=== PATIENT | male | born 1995 | race American Indian/Alaskan Native ===

== ENCOUNTER 2018-06-24 19:19 | Emergency (ER) | payer OTHER ==
[2018-06-24 19:30] VITALS: RESP 18; TEMP 99; BMI 18.1
[2018-06-24] MEDS ORDERED: Naproxen 550 mg Tab PO STA (19:59)
--- NOTE | 2018-06-24 20:03 | ED PDOC ---
Arrival/HPI - General Chief Complaint: Dental Pain Time Seen by Provider: 06/24/18 19:25 Historian: Patient - History of Present Illness Narrative History of Present Illness (Text): 06/24/18 20:00 23 yo M presents c/o pain and swelling to the L upper gum with dental pain for the past few days. Reports no headache, fever, URI, sore throat, N/V. Patient has no other complaints Past Medical History - Reproductive Currently Lactating: No - Psychiatric Hx Substance Use: No - Anesthesia Hx Anesthesia: No Hx Anesthesia Reactions: No Hx Malignant Hyperthermia: No Family/Social History Family/Social History: No Known Family HX Smoking Status: Never Smoked Hx Alcohol Use: Yes Frequency of alcohol use: Socially Hx Substance Use: No Allergies/Home Meds Allergies/Adverse Reactions: Allergies seafood Allergy (Uncoded 06/24/18 19:29) ANAPHYLAXIS Review of Systems - Review of Systems Constitutional: absent: Fatigue, Fevers ENT: Other (+dental pain). absent: Sore Throat, Rhinorrhea, Sinus Congestion Respiratory: absent: SOB, Cough Skin: absent: Rash, Skin Lesions Neurological: absent: Headache, Dizziness Physical Exam Vital Signs Temp Pulse Resp BP Pulse Ox 06/24/18 19:29 99 F 83 18 123/77 98 Temperature: Afebrile Blood Pressure: Normal Pulse: Regular Respiratory Rate: Normal Appearance: Positive for: Well-Appearing, Non-Toxic, Comfortable Pain Distress: None Mental Status: Positive for: Alert and Oriented X 3 - Systems Exam Head: Present: Atraumatic, Normocephalic, Swelling (+mild edema and tenderness to the L cheek, no erythema, no fluctuance) Pupils: Present: PERRL Extroacular Muscles: Present: EOMI Conjunctiva: Present: Normal Mouth: Present: Moist Mucous Membranes, Other (+large dental cavity to the L upper 2nd and 3rd molar). No: Drooling, Trismus Neck: Present: Normal Range of Motion. No: Meningeal Signs, MIDLINE TENDERNESS, Lymphadenopathy Back: Present: Normal Inspection Upper Extremity: Present: Normal Inspection. No: Cyanosis, Edema Lower Extremity: Present: Normal Inspection. No: Edema Neurological: Present: GCS=15, CN II-XII Intact, Speech Normal Skin: Present: Warm, Dry, Normal Color. No: Rashes Psychiatric: Present: Alert, Oriented x 3, Normal Insight, Normal Concentration Medical Decision Making ED Course and Treatment: 06/24/18 20:04 Patient medicated with clindamycin po and naprosyn po. Diagnosis of likely dental abscess d/w the patient. Advised to follow up with a dentist in 1-2 days without fail. Advised to take medication as prescribed. Return to the emergency room at any time for any new or worsening symptoms. Patient states he fully agrees with and understands discharge instructions. States that he agrees with the plan and disposition. Verbalized and repeated discharge instructions and plan. I have given the patient opportunity to ask any additional questions. - Medication Orders Current Medication Orders: Clindamycin HCl (Cleocin) 300 mg PO STAT STA; Protocol Stop: 06/24/18 20:00 Naproxen (Anaprox Ds) 550 mg PO ONCE STA Stop: 06/24/18 20:00 - PA / NOCTURNIST / Resident Statement / has reviewed & agrees with the documentation as recorded. Disposition/Present on Arrival - Present on Arrival Any Indicators Present on Arrival: No History of DVT/PE: No History of Uncontrolled Diabetes: No Urinary Catheter: No History of Decub. Ulcer: No History Surgical Site Infection Following: None - Disposition Have Diagnosis and Disposition been Completed?: Yes Diagnosis: Dental abscess Disposition: HOME/ ROUTINE Disposition Time: 20:40 Patient Plan: Discharge Patient Problems: Current Active Problems Problem Status Onset Dental abscess Acute Condition: STABLE Discharge Instructions (ExitCare): Dental Pain (DC) Additional Instructions: Thank you for letting us take care of you today. You were treated for dental abscess. The emergency medical care you received today was directed at your acute symptoms. Take medications as prescribed. Return to the Emergency Department if your symptoms worsen, do not improve, or if you have any other problems. Please follow up with a dentist in 2 days for re-evaluation and follow up. Bring any paperwork you were given at discharge with you along with any medications you are taking to your follow up visit. Our treatment cannot replace ongoing medical care by a primary care provider (PCP) outside of the emergency department. Prescriptions: Clindamycin [Cleocin] 300 mg PO TID #21 cap Naproxen 500 mg PO BID PRN #20 tablet PRN Reason: Pain, Moderate (4-7) Referrals: PCP,NO [Primary Care Provider] - Follow up with primary [facility] [Outside] - Follow up with primary Forms: [facility] ([place]ir[place]), WORK NOTE, SCHOOL NOTE
[2018-06-24 20:55] VITALS: BP 116/79; PULSE 72; O2SAT 100
== END 2018-06-24 20:54 | disposition home or self-care (01) ==
LOC: ED 19:19
DX: K04.7 Periapical abscess without sinus (principal)